=== PATIENT | female | born 1965 | race Caucasian/White ===

== ENCOUNTER 2016-05-14 16:49 | Emergency (ER) | payer OTHER ==
[~2016-05-14] VITALS: Ht 149.9 cm; Wt 130.6 kg
[~2016-05-14 16:49] MED LIST: [UNRECOGNIZED DRUG - REMARK]; [UNRECOGNIZED DRUG - REMARK]; [UNRECOGNIZED DRUG - REMARK]
[2016-05-14 17:01] VITALS: BP 153/83
--- NOTE | 2016-05-14 17:46 | NUR ---
PT TO BED 8 AT THIS TIME
--- NOTE | 2016-05-14 18:00 | NUR ---
PATIENT PRESENTS TO ED WITH PAYTON PLACED IN LEFT LEG X2 WEEKS AGO. C/O REDNESS AND SWELLING AT STAPLE SITE. . PT STATES . DENIES N/V/D; SKIN IS PINK/WARM/DRY; AAOX4 WITH EVEN AND STEADY GAIT; LUNGS CLEAR BL; HR EVEN AND REGULAR; PT DENIES ANY FEVER, CP, SOB, OR COUGH AT THIS TIME; PATIENT STATES PAIN OF 10/10 AT THIS TIME; VSS; PATIENT POSITIONED FOR COMFORT; HOB ELEVATED; BEDRAILS UP X2; BED DOWN. ER MD MADE AWARE OF PT STATUS.
--- NOTE | 2016-05-14 19:28 | NUR ---
GO REPORT FROM TRENT ENCARNACION.
--- NOTE | 2016-05-14 19:29 | NUR ---
REPORT GIVEN TO TRENT FREEMAN
--- NOTE | 2016-05-14 19:30 | NUR ---
Patient discharged with v/s stable. Written and verbal after care instructions given and explained. Patient alert, oriented and verbalized understanding of instructions. Ambulatory with steady gait. All questions addressed prior to discharge. ID band removed. Patient advised to follow up with PMD. Rx of KEFLEX 500 MG, BACTRIM DS 800/160MG given. Patient educated on indication of medication including possible reaction and side effects. Opportunity to ask questions provided and answered.
[2016-05-14 19:36] VITALS: BP 145/81
== END 2016-05-14 19:30 | disposition home or self-care (01) ==
LOC: MED 16:49
DX: L08.9 Local infection of the skin and subcutaneous tissue, unspecified (principal); E11.9 Type 2 diabetes mellitus without complications; I10 Essential (primary) hypertension; Z90.710 Acquired absence of both cervix and uterus; Z98.890 Other specified postprocedural states